=== PATIENT | male | born 1980 | race Caucasian/White ===

== ENCOUNTER 2018-02-03 13:50 | Emergency (ER) | payer OTHER ==
[~2018-02-03] VITALS: Ht 170.2 cm; Wt 80.7 kg
[2018-02-03] MEDS ORDERED: fentaNYL PF VIAL 100 MCG/2 ML VIAL IV ONE ×4 (14:45→20:00)
--- NOTE | 2018-02-03 15:00 | RAD ---
EXAM: CHEST 1 VIEW History: Preop COMPARISON: None available. TECHNIQUE: Single portable radiograph of the chest FINDINGS: The cardiac silhouette is unremarkable. The lungs are clear bilaterally. The costophrenic sulci are clear and well demarcated. IMPRESSION: No radiographic evidence of an acute cardiopulmonary process. Electronically signed by: Kyler Nichole MD (02/03/2018 2:57 PM) [facility]
--- NOTE | 2018-02-03 15:02 | RAD ---
Single view pelvis and two-view left hip dated 02/03/2018. No comparison available. Clinical data indication: Pain after injury. FINDINGS: There is a comminuted fracture of the subtrochanteric left femur with medial angulation at the fracture site. Mild displacement. Pelvic ring is intact. No additional fractures are seen. Mild degenerative change of the bilateral hip joint and pubic symphysis. Surgical clips at the proximal left thigh. IMPRESSION: Angulated fracture of the subtrochanteric left femur, mildly displaced. Electronically signed by: Ricky Olivares MD (02/03/2018 2:58 PM) [facility] [place]
--- NOTE | 2018-02-03 15:20 | PHYS DOC ---
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 The third step broke and his left leg went through it, broke in left femur . He was not able to get up. He denied any head or neck injury. Patient called 911 , EMS brought him here for evaluation. Patient was given a total of 200 mcg of Fentanyl by EMS on route. 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 Patient said he was admitted at [facility] 3 days ago for DKA. He said his heart rate was in 140 bpm. Patient said he was given some medication that it slowed down the heart rate. Patient denied any history of heart problem. He denied any previous history of BLOOD CLOT DISORDER, CAD... Review of Systems Review of Systems Constitutional: Denies fever or chills [] Eyes: Denies change in visual acuity, redness, or eye pain [] HENT: Denies nasal congestion or sore throat [] Respiratory: Denies cough or shortness of breath [] Cardiovascular: No additional information not addressed in HPI [] GI: Denies abdominal pain, nausea, vomiting, bloody stools or diarrhea [] : Denies dysuria or hematuria [] Musculoskeletal:Positive for left thigh pain, left hip pain. Integument: Denies rash or skin lesions [] Neurologic: Denies headache, focal weakness or sensory changes [] Endocrine: Denies polyuria or polydipsia [] All other systems were reviewed and found to be within normal limits, except as documented in this note. Current Medications Current Medications Current Medications Medications (Trade) Dose Ordered Sig/Aubrey Start Time Stop Time Status Last Admin Dose Admin Adenosine (Adenocard) 12 mg 1X ONCE 02/03/18 17:30 02/03/18 17:30 DC Amiodarone HCl 150 mg/Dextrose 103 ml @ 618 mls/hr 1X ONCE 02/03/18 18:15 02/03/18 18:24 DC 02/03/18 18:30 618 MLS/HR Amiodarone HCl 900 mg/Dextrose 518 ml @ 0 mls/hr CONT PRN 02/03/18 18:15 Digoxin (Lanoxin) 500 mcg STK-MED ONCE 02/03/18 17:13 02/03/18 17:14 DC Diltiazem HCl (Cardizem) 20 mg 1X ONCE 02/03/18 19:00 02/03/18 19:01 DC 02/03/18 19:03 20 MG Diltiazem HCl 125 mg/Dextrose 125 ml @ 5 mls/hr CONT PRN 02/03/18 19:15 02/03/18 19:21 5 MLS/HR Fentanyl Citrate (Fentanyl 2ml Vial) 50 mcg 1X ONCE 02/03/18 19:00 02/03/18 19:01 DC 02/03/18 19:25 50 MCG Info (CONTRAST GIVEN -- Rx MONITORING) 1 each PRN DAILY PRN 02/03/18 17:30 02/05/18 17:29 Iohexol (Omnipaque 300 Mg/ml) 75 ml 1X ONCE 02/03/18 17:30 02/03/18 17:31 DC 02/03/18 17:46 75 ML Magnesium Sulfate/ Dextrose 100 ml @ 100 mls/hr 1X ONCE 02/03/18 19:00 02/03/18 19:59 02/03/18 19:22 100 MLS/HR Potassium Chloride 40 meq/ Dextrose 1,020 ml @ 75 mls/hr 1X ONCE 02/03/18 17:00 02/04/18 06:35 02/03/18 16:58 75 MLS/HR Potassium Chloride (KCl Oral Soln) 30 meq 1X ONCE 02/03/18 17:45 02/03/18 17:46 DC 02/03/18 18:20 30 MEQ Potassium Chloride (Klor-Con) 30 meq 1X ONCE 02/03/18 18:00 02/03/18 18:01 Cancel Sodium Chloride 1,000 ml @ 1,000 mls/hr 1X ONCE 02/03/18 17:30 02/03/18 18:29 DC 02/03/18 17:30 1,000 MLS/HR Allergies Allergies Allergies Coded Allergies Type Severity Reaction Last Updated Verified Penicillins Allergy Mild Rash 02/03/18 Yes Physical Exam Physical Exam Constitutional: Well developed, well nourished, In moderate acute distress due to pain , non-toxic appearance. [] HENT: Normocephalic, atraumatic, bilateral external ears normal, oropharynx moist, no oral exudates, nose normal. [] Eyes: PERRLA, EOMI, conjunctiva normal, no discharge. [] Neck: Normal range of motion, no tenderness, supple, no stridor. [] Cardiovascular:Heart rate regular rhythm, no murmur [] Lungs & Thorax: Bilateral breath sounds clear to auscultation [] Abdomen: Bowel sounds normal, soft, no tenderness, no masses, no pulsatile masses. [] Skin: Warm, dry, no erythema, no rash. [] Back: No tenderness, no CVA tenderness. [] Extremities: Left proximal femur is tender to palpation, no open wound. Neurologic: Alert and oriented X 3, normal motor function, normal sensory function, no focal deficits noted. Psychologic: Affect normal, judgement normal, mood normal. [] Current Patient Data Vital Signs Vital Signs Date Time Temp Pulse Resp B/P (MAP) Pulse Ox O2 Delivery O2 Flow Rate FiO2 02/03/18 19:38 114 18 120/70 (87) 97 Room Air 02/03/18 18:00 98.2 98.2 Lab Values Laboratory Tests Test 02/03/18 15:26 02/03/18 16:09 White Blood Count 9.3 x10^3/uL (4.0-11.0) Red Blood Count 4.40 x10^6/uL (4.30-5.70) Hemoglobin 13.7 g/dL (13.0-17.5) Hematocrit 39.0 % (39.0-53.0) Mean Corpuscular Volume 89 fL (79-100) Mean Corpuscular Hemoglobin 31 pg (25-35) Mean Corpuscular Hemoglobin Concent 35 g/dL (31-37) Red Cell Distribution Width 12.7 % (11.5-14.5) Platelet Count 279 x10^3/uL (140-400) Neutrophils (%) (Auto) 64 % (31-73) Lymphocytes (%) (Auto) 24 % (24-48) Monocytes (%) (Auto) 11 % (0-9) H Eosinophils (%) (Auto) 0 % (0-3) Basophils (%) (Auto) 1 % (0-3) Neutrophils # (Auto) 5.9 x10^3uL (1.8-7.7) Lymphocytes # (Auto) 2.3 x10^3/uL (1.0-4.8) Monocytes # (Auto) 1.0 x10^3/uL (0.0-1.1) Eosinophils # (Auto) 0.0 x10^3/uL (0.0-0.7) Basophils # (Auto) 0.1 x10^3/uL (0.0-0.2) Prothrombin Time 12.5 SEC (11.7-14.0) Prothrombin Time INR 1.0 (0.8-1.1) PTT 24 SEC (24-38) Sodium Level 137 mmol/L (136-145) Potassium Level 3.0 mmol/L (3.5-5.1) L Chloride Level 100 mmol/L (98-107) Carbon Dioxide Level 22 mmol/L (21-32) Anion Gap 15 (6-14) H Blood Urea Nitrogen 13 mg/dL (8-26) Creatinine 1.0 mg/dL (0.7-1.3) Estimated GFR (Cockcroft-Gault) 84.5 BUN/Creatinine Ratio 13 (6-20) Glucose Level 310 mg/dL (70-99) H Calcium Level 8.5 mg/dL (8.5-10.1) Magnesium Level 2.1 mg/dL (1.8-2.4) Total Bilirubin 0.5 mg/dL (0.2-1.0) Aspartate Amino Transferase (AST) 64 U/L (15-37) H Alanine Aminotransferase (ALT) 20 U/L (16-63) Alkaline Phosphatase 108 U/L (46-116) Total Protein 6.1 g/dL (6.4-8.2) L Albumin 3.0 g/dL (3.4-5.0) L Albumin/Globulin Ratio 1.0 (1.0-1.7) Glucose (Fingerstick) 313 mg/dL (70-99) H Laboratory Tests 02/03/18 15:26 Laboratory Tests 02/03/18 15:26 EKG EKG [] Radiology/Procedures Radiology/Procedures [][facility] [address] [place] [address] IMAGING REPORT Signed PATIENT: RICKY HUNTER ACCOUNT: [id number] : 1980 LOCATION: ER AGE: 37 SEX: M EXAM STATUS: REG ER ORD. PHYSICIAN: ELVA LACEY DO REASON: fell, left hip pain PROCEDURE: HIP LEFT 2V WITH PELVIS Single view pelvis and two-view left hip dated 02/03/2018. No comparison available. Clinical data indication: Pain after injury. FINDINGS: There is a comminuted fracture of the subtrochanteric left femur with medial angulation at the fracture site. Mild displacement. Pelvic ring is intact. No additional fractures are seen. Mild degenerative change of the bilateral hip joint and pubic symphysis. Surgical clips at the proximal left thigh. IMPRESSION: Angulated fracture of the subtrochanteric left femur, mildly displaced. Electronically signed by: Ricky Olivares MD (02/03/2018 2:58 PM) [facility] [place] DICTATED and SIGNED BY: RICKY OLIVARES MD DATE: 02/03/18 1457 [facility] [address] [place] [address] IMAGING REPORT Signed PATIENT: RICKY HUNTER ACCOUNT: [id number] : 1980 LOCATION: ER AGE: 37 SEX: M EXAM STATUS: REG ER ORD. PHYSICIAN: ELVA LACEY DO REASON: shortness of air, rapid heart rate, left femur fracture PROCEDURE: CT ANGIOGRAPHY CHEST Examination: CT angiography chest HISTORY: History of shortness of breath COMPARISON: None available Technique: Axial CT angiography images of chest were performed with IV contrast. Coronal and sagittal 3-D MIP reformats are performed. Exposure: One or more of the following individualized dose reduction techniques were utilized for this examination: 1. Automated exposure control 2. Adjustment of the mA and/or kV according to patient size 3. Use of iterative reconstruction technique FINDINGS: The central airways are patent. The heart size grossly appears unremarkable. The caliber of the aorta grossly appears unremarkable. There is no evidence of filling defect identified in the main pulmonary arterial trunk and right and left main pulmonary arteries. The evaluation the distal segmental branches of the pulmonary arteries is limited. No radiologically significant mediastinal lymphadenopathy. Mild emphysematous changes identified in the apical lungs. Motion artifact limits evaluation. The lungs are otherwise clear. No evidence of pleural effusion or pneumothorax. There is mild reflux of contrast into the IVC and hepatic veins. Evaluation of the upper abdomen is limited due to motion artifact. Mild degenerative changes thoracic spine. IMPRESSION: 1. No evidence of central pulmonary embolism. 2. Mild emphysematous changes identified in the lungs. Electronically signed by: Kyler Nichole MD (02/03/2018 6:13 PM) [facility] DICTATED and SIGNED BY: KYLER NICHOLE MD DATE: 02/03/181807 Course & Med Decision Making Course & Med Decision Making Pertinent Labs and Imaging studies reviewed. (See chart for details) Patient's heart rate initially was below 100 bpm. XRAY SHOWN LEFT PROXIMAL FEMORAL FRACTURE. A traction was applied to his left lower extremity. Patient was in severe pain. His heart rate sped up to 180 bpm. EKG was done, shown he was in SVT. Patient was given IV fluid and more pain medication. He was given 6 mg adenosine iv, it converted his rhythm to sinus tachycardia, rate of 118 bpm for about a 60 seconds,and then it went back to SVT, HEART RATE IN 160 BPM. Patient was given 12 mg Adenosine, and it did converted him to sinus rhythm, repeated EKG shown rate of 120 BPM. But again patient went back into SVT after about [address] Brandan Gallardo, Orthopedic surgeon control operator flow coat, was called, concerned about pathologic fracture with history of sarcoma, recommended to transfer Patient to [facility]. [facility] transfer center was called, Discussed with trauma surgeon, Dr. Brooks, who was hesitate to accept patient at this time due to him being in SVT. HE would like patient to be converted to sinus rhythm before he can accept patient. Dr. Jonathon Cifuentes, missile facilities repairer control operator flow coat, was called, recommended .5 MG Digoxin IV due to low blood pressure. Digoxin was given but patient continues to be in SVT, RATE OF 160 BPM. Patient was taken to CT scan to have CTA of his chest. Dr. Cifuentes recommended to start patient on AMIODARONE PROTOCOL. Signout from Dr. LACEY at 6:15 PM Heart rate was in the 140s on my initial evaluation. Blood pressure was very stable I ordered 20 mg bolus of diltiazem which brought her heart rate down to THE RANGE OF 112-115. We started a diltiazem drip at 5 mg per hour as of 7:45 PM the heart rate is 108. I spoke with the transfer center 7:30 PM. The heart rate at that time was 1: 15. Accepting doctor is Dr. Brooks who is accept the patient go sped EMS is here at 7:45 PM to transfer the patient. We did a Doppler nursing staff performed a Doppler at 7:30 PM and noted to be a good pulse. There was also a pulse documented initially in the emergency room. Patient is feeling better at my time 7:45 PM on my last evaluation the patient is transferred in stable condition. Of note Dr. LACEY had talked to the orthopedic surgeon here twice who dID not feel comfortable given the complexity of the patient's history and on top of that also. That overnight admission for heart rate control was on advisable due to needing urgent surgery. Therefore the transfer benefit definitely outweigh any risk as the patient is currently still in a traction splint. Dragon Disclaimer Dragon Disclaimer This electronic medical record was generated, in whole or in part, using a voice recognition dictation system. Departure Departure Impression: Primary Impression: Closed left subtrochanteric femur fracture Additional Impressions: SVT (supraventricular tachycardia) Hypokalemia Hyperglycemia Disposition: 02 TRANSFER [facility] HOSP Condition: STABLE Referrals: THOMPSON FRANCIS MD (PCP) Problem Qualifiers ELVA LACEY DO Feb 03, 2018 15:20 JESSE BOSE MD Feb 03, 2018 19:37
[2018-02-03 15:39] LABS: BASO # 0.1 x10^3/uL (0.0-0.2); BASO % 1 % (0-3); EOS % 0 % (0-3); HEMOGLOBIN 13.7 g/dL (13.0-17.5); LYMPH # 2.3 x10^3/uL (1.0-4.8); LYMPH % 24 % (24-48); MEAN CORPUSCULAR HEMOGLOBIN 31 pg (25-35); MEAN CORPUSCULAR HGB CONC 35 g/dL (31-37); MEAN CORPUSCULAR VOLUME 89 fL (79-100); MONO % 11 % (0-9); NEUT # 5.9 x10^3uL (1.8-7.7); NEUT % 64 % (31-73); PLATELET COUNT 279 x10^3/uL (140-400); RED CELL DISTRIBUTION WIDTH 12.7 % (11.5-14.5); WHITE BLOOD COUNT 9.3 x10^3/uL (4.0-11.0)
[2018-02-03 15:47] LABS: PROTHROMBIN TIME PATIENT 12.5 SEC (11.7-14.0)
[2018-02-03 15:52] LABS: CALCIUM 8.5 mg/dL (8.5-10.1); GFR 84.5; TOTAL BILIRUBIN 0.5 mg/dL (0.2-1.0); TOTAL PROTEIN 6.1 g/dL (6.4-8.2)
[2018-02-03] MEDS ORDERED: IV NORMAL SALINE 1000ML BAG 1,000 ML IV ONE ×2 (16:00→17:30)
--- NOTE | 2018-02-03 16:31 | RAD ---
CT LOWER EXTREMITY WO LEFT dated 02/03/2018 3:55 PM Indication: Pain.LEFT FEMUR FX, EVAL FOR CANCER
HX OF SOFT TISSUE SARCOMA. Comparison: 02/08/2014 Technique: Contiguous axial imaging of the left hip performed with thin cut coronal and sagittal reconstruction. One or more of the following individualized dose reduction techniques were utilized for this examination: 1. Automated exposure control 2. Adjustment of the mA and/or kV according to patient size 3. Use of iterative reconstruction technique Findings: There is a obliquely oriented fracture of the subtrochanteric left femur with one half shaft width dorsal displacement of the distal shaft relative to the proximal shaft. There is some soft tissue thickening along the fracture margins extending into the vastus musculature. There is also some soft tissue density that may infiltrate the marrow of the proximal shaft. The previously described large soft tissue mass of the lateral thigh is less apparent on today's exam. There are surgical clips in the region. Osseous structures are otherwise intact. No additional bone lesion or periostitis. There is diffuse vascular calcinosis. There is fatty atrophy of the distal vastus lateralis and distal vastus intermedius muscles. IMPRESSION: 1. Mildly displaced fracture of the subtrochanteric left femur. Given the clinical history of sarcoma this could be related to a pathologic fracture from recurrent tumor or bony metastatic involvement. Alternatively, post radiation insufficiency fracture is another consideration. 2. There is been interval resection of large soft tissue mass along the proximal lateral thigh. Mild soft tissue thickening along the fracture margins with possible infiltration of the proximal medullary space and mild cortical thickening. Although this could be related to hematoma, recurrent tumor is not excluded. Suggest MRI with and without contrast for better evaluation. Electronically signed by: Ricky Olivares MD (02/03/2018 4:28 PM) [facility] [place]
[2018-02-03] MEDS ORDERED: ADENOSINE 6 MG/2 ML VIAL. IV ONE ×3 (16:45→17:30)
[2018-02-03] MEDS ORDERED: POTASSIUM CHLORIDE 40 MEQ in IV DEXTROSE 5% 1,000 ML IV ONE (17:00)
[2018-02-03] MEDS ORDERED: DIGOXIN IV 500 MCG/2 ML AMPUL. ONE (17:13)
[2018-02-03] MEDS ORDERED: DIGOXIN IV 500 MCG/2 ML AMPUL. IV ONE (17:15)
[2018-02-03] MEDS ORDERED: IOHEXOL 300 MG/ML 100ML VIAL. IV ONE (17:30)
[2018-02-03] MEDS ORDERED: CONTRAST GIVEN. MC PRN (17:30)
[2018-02-03] MEDS ORDERED: POTASSIUM CHLORIDE 20 MEQ/15 ML ORAL LIQUID. PO ONE (17:45)
[2018-02-03] MEDS ORDERED: POTASSIUM CHLORIDE 10 MEQ TABLET.ER. PO ONE (18:00)
[2018-02-03] MEDS ORDERED: AMIODARONE 900 MG in IV DEXTROSE 5% 500 ML IV PRN (18:15)
[2018-02-03] MEDS ORDERED: AMIODARONE 150 MG in IV DEXTROSE 5% 100ML 100 ML IV ONE (18:15)
--- NOTE | 2018-02-03 18:16 | RAD ---
Examination: CT angiography chest HISTORY: History of shortness of breath COMPARISON: None available Technique: Axial CT angiography images of chest were performed with IV contrast. Coronal and sagittal 3-D MIP reformats are performed. Exposure: One or more of the following individualized dose reduction techniques were utilized for this examination: 1. Automated exposure control 2. Adjustment of the mA and/or kV according to patient size 3. Use of iterative reconstruction technique FINDINGS: The central airways are patent. The heart size grossly appears unremarkable. The caliber of the aorta grossly appears unremarkable. There is no evidence of filling defect identified in the main pulmonary arterial trunk and right and left main pulmonary arteries. The evaluation the distal segmental branches of the pulmonary arteries is limited. No radiologically significant mediastinal lymphadenopathy. Mild emphysematous changes identified in the apical lungs. Motion artifact limits evaluation. The lungs are otherwise clear. No evidence of pleural effusion or pneumothorax. There is mild reflux of contrast into the IVC and hepatic veins. Evaluation of the upper abdomen is limited due to motion artifact. Mild degenerative changes thoracic spine. IMPRESSION: 1. No evidence of central pulmonary embolism. 2. Mild emphysematous changes identified in the lungs. Electronically signed by: Kyler Nichole MD (02/03/2018 6:13 PM) [facility]
[2018-02-03] MEDS ORDERED: dilTIAZem IV PUSH 25 MG/5 ML VIAL IVP ONE (19:00)
[2018-02-03] MEDS ORDERED: MAGNESIUM SULFATE 1GM 100 ML IV ONE (19:00)
[2018-02-03] MEDS ORDERED: dilTIAZem INJ 125 MG in IV DEXTROSE 5% 100ML 100 ML IV PRN (19:15)
[2018-02-03 19:38] VITALS: BP 120/70
--- NOTE | 2018-02-05 06:39 | EKG ---
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
--- NOTE | 2018-02-05 06:39 | EKG ---
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
== END 2018-02-03 20:03 | disposition short-term general hospital (02) ==
LOC: ER 13:50
DX: S72.22XA Displaced subtrochanteric fracture of left femur, initial encounter for closed fracture (principal); I47.1 Supraventricular tachycardia; E87.6 Hypokalemia; Z88.0 Allergy status to penicillin; E11.65 Type 2 diabetes mellitus with hyperglycemia; W17.89XA Other fall from one level to another, initial encounter; Y93.02 Activity, running; Y92.89 Other specified places as the place of occurrence of the external cause; Y99.8 Other external cause status
CPT/HCPCS: 29505; 36415; 71045; 71275; 73502; 73700; 80053; 82962; 83735; 85025; 85610; 85730; 93005; 96361; 96365; 96366; 96368; 96375; 96376; 99285; J0153; J0282; J1160; J3010; J3475; J3480; J3490; J7030; Q9967; 96367